=== PATIENT | male | born 2005 | race Caucasian/White ===

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

== ENCOUNTER 2024-11-22 15:51 | Emergency (ER) | payer OTHER ==
[~2024-11-22] VITALS: Ht 193 cm; Wt 100.0 kg
[2024-11-22 15:56] VITALS: TEMP 98.7
[2024-11-22 17:36] LABS: BASO # 0.0 10^3/uL (0.0-0.2); BASO % 0.4 % (0.0-1.0); EOS # 0.1 10^3/uL (0.0-0.5); EOS % 0.7 % (0.0-3.0); LYMPH # 2.0 10^3/uL (1.5-5.0); LYMPH % 17.2 % (24.0-44.0); MONO # 1.2 10^3/uL (0.0-0.8); MONO % 10.8 % (2.0-8.0); NEUTROPHILS # 8.0 10^3/uL (1.5-8.5); NEUTROPHILS % 70.4 % (36.0-66.0); PLATELET COUNT, AUTOMATED 301 10^3/uL (150-450)
[2024-11-22] MEDS ORDERED: ISOVUE-370 76% 100 ML VIAL As Ordered ONE (17:36)
[2024-11-22 17:50] LABS: CALCIUM LEVEL 9.1 MG/DL (8.5-10.1); CARBON DIOXIDE LEVEL 29 MMOL/L (20-31); CHLORIDE LEVEL 102 MMOL/L (98-107); CREATININE FOR GFR 1.05 MG/DL (0.70-1.30); GLOMERULAR FILTRATION RATE > 90.0 (>60); POTASSIUM SERUM 4.0 MMOL/L (3.5-5.1); SODIUM LEVEL 142 MMOL/L (136-145)
[2024-11-22 20:30] VITALS: BP 143/79; O2SAT 97
== END 2024-11-22 21:21 | disposition home or self-care (01) ==
LOC: M ED 15:51
DX: S93.401A Sprain of unspecified ligament of right ankle, initial encounter (principal); R91.8 Other nonspecific abnormal finding of lung field; M25.512 Pain in left shoulder; D73.89 Other diseases of spleen; K68.9 Other disorders of retroperitoneum; V00.841A Fall from standing electric scooter, initial encounter; Y92.410 Unspecified street and highway as the place of occurrence of the external cause; Y93.9 Activity, unspecified; Y99.9 Unspecified external cause status; F17.200 Nicotine dependence, unspecified, uncomplicated
CPT/HCPCS: 70450; 71260; 72125; 73030; 73502; 73552; 73590; 73610; 73630; 74177; 80047; 80048; 85025; 93041; 94760; 99285; Q9967